=== PATIENT | female | born 1960 | race Caucasian/White ===

== ENCOUNTER 2016-02-15 13:24 | Outpatient (CLI) | payer MEDICARE, OTHER ==
[2013-01-12 13:48] VITALS: BP 137/82
[2016-02-15 14:06] LABS: eGFR (African) > 60; eGFR (Non-African) > 60
== END 2016-02-15 13:25 ==
LOC: LAB 13:24
PROVIDERS: ATTEND Family Medicine
DX: E78.2 Mixed hyperlipidemia (principal)
CPT/HCPCS: 36415; 80053; 80061

== ENCOUNTER 2016-03-28 14:39 | Outpatient (CLI) | payer MEDICARE, OTHER ==
[2013-01-12 13:48] VITALS: BP 137/82
[2016-03-28 15:06] LABS: BASOPHILS % 0.3 (0.0-1.5); EOSINOPHILS % 2.4 % (0.0-6.8); LYMPHOCYTES # 1.6 # k/uL (0.6-4.0); MEAN CORPUSCULAR HEMOGLOBIN 32.5 pg (28.0-34.0); MONOCYTES # 0.2 # k/uL (0.0-0.9); NEUTROPHILS # 3.2 # k/uL (1.4-7.7)
[2016-03-28 15:35] LABS: eGFR (African) > 60; eGFR (Non-African) > 60
== END 2016-03-28 14:40 ==
LOC: LAB 14:39
PROVIDERS: ATTEND Physician Assistant
DX: I49.8 Other specified cardiac arrhythmias (principal)
CPT/HCPCS: 36415; 80053; 84443; 85025

== ENCOUNTER 2016-11-20 07:42 | Day surgery (SDC) | payer MEDICARE, OTHER ==
[2013-01-12 13:48] VITALS: BP 137/82
[2016-11-20] MEDS ORDERED: LIDOCAINE HCL/PF 2% 100 MG/5 ML VIAL IJ ONE (08:00)
[2016-11-20] MEDS ORDERED: SALINE FLUSH 10 ML DISP.SYRIN IVF ONE (08:00)
[2016-11-20] MEDS ORDERED: LACTATED RINGERS 1,000 ML IV.SOLN IV ONE (08:00)
[2016-11-20] MEDS ORDERED: PROPOFOL 500 MG/50 ML VIAL IV ONE (08:00)
--- NOTE | 2016-11-20 11:21 | GI Report ---
REFERRING PHYSICIAN: DEBORAH Jain SUBSTANCE ABUSE RN: Mando Colindres MD PROCEDURE MEDICATION: Propofol as per anesthesia. INDICATIONS: A 56-year-old woman with multiple medical issues. She has COPD from chronic smoking. She has had previous polyps. A number of family members have had colon cancer and other cancers in the family. The patient has central obesity. She apparently has had pancreatitis in the past. She states she no longer smokes and has cut back on alcohol. She is 5 feet 2 inches and weighs 95 kilograms and carries that centrally. On examination, she has decreased breath sounds. Abdomen is protuberant. No specific areas of tenderness. Heart is regular. PROCEDURE PERFORMED: Colonoscopy and polypectomy. PROCEDURE: An Olympus video colonoscope was advanced to the rectum. She has very extensive diverticular disease of the sigmoid and descending colon with large mouth diverticula. Near the splenic flexure, she had 2 flat polyps removed with a cold snare varying about 3 to 4 mm in size. The appendiceal orifice and ileocecal valve looked normal. Again, the ascending colon is normal until you get to near the hepatic flexure on the transverse colon side with the 2 polyps removed as described. Again, descending colon and sigmoid with extensive large diverticula. Retroflexion of the rectum was unremarkable. Patient tolerated the procedure well. FINDINGS: 1. Two polyps removed near the hepatic flexure. 2. Severe diverticular disease of the sigmoid colon and descending colon. RECOMMENDATIONS: 1. Pending the pathology reports, consider re-looking at her colon in 5 years. 2. Again, would stay off tobacco. 3. Dietary changes. Try to get increased fiber in her diet or add Metamucil or Citrucel or FiberCon or fiber supplement daily. 4. Follow up with Katelyn Su. cc: DEBORAH Jain
== END 2016-11-20 07:43 ==
LOC: OPSURG 07:42
PROVIDERS: ATTEND Internal Medicine Gastroenterology
DX: K63.5 Polyp of colon (principal); K57.30 Diverticulosis of large intestine without perforation or abscess without bleeding; Z87.891 Personal history of nicotine dependence; Z80.9 Family history of malignant neoplasm, unspecified
CPT/HCPCS: 88305; J2001; J2704; J7120; 45385; S1016

== ENCOUNTER 2017-02-27 09:44 | Emergency (ER) | payer MEDICARE, OTHER ==
--- NOTE | 2017-02-27 10:11 | ED Physician Documentation ---
Dyspnea - HISTORIAN Historian: patient - HPI Chief Complaint: Dyspnea Additional Information: Patient has a history COPD. Has a 10 day history of increasing SOD, dyspnea. Has developed a cough that has been productive of yellow phlegm. No blood noted. Has some clear nasal drainage. . No chest pain noted. Throat is raw. Granddaughter positive for influenza A and was around patient all weekend. Onset: days ago (10 days) Duration: continues in ED, worse (over the last 24 hours. ) Initiating Event: upper respiratory illness Severity: moderate Associated Symptoms: chills, fever (not sure how high) Further Comments: no - ROS CONST: no problems EYES/ENT: sore throat (raw), nasal drainage (mild clear) GI/: nausea. denies: diarrhea NEURO/PSYCH: headache (mild) MS/SKIN/LYMPH: other (body aches) - PAST HX Lung Disease: COPD Cardiac Disease: none PE Risk Factors: none Surgeries/Procedures: cholecystectomy, other (abd wall hernia repair, left TKR) Other History: other (chronic pancreatitis) Immunizations: influenza, pneumovax (Pneumovax 23, Prevnar 13.) Allergies/Adverse Reactions: Allergies Allergy/AdvReac Type Severity Reaction Status Date / Time codeine Allergy Verified 02/27/17 10:14 Home Medications: Ambulatory Orders Medication Instructions Recorded Multivitamin [Bugs Bunny Vit Plus 1 each PO D 02/17/12 Minerals] Nystatin 500,000 Unit/5 ml Udc 500,000 unit PO QID #200 ml 02/27/17 [Nilstat] Oseltamivir Phosphate [Tamiflu] 75 mg PO BID #10 capsule 02/27/17 - SOCIAL HX Smoking History: quit greater than 1 year (Dec 2015) Alcohol Use: occasionally Drug Use: none - FAMILY HX Family History: none - VITAL SIGNS Vital Signs: Vital Signs Temp Pulse Resp BP Pulse Ox 137/82 01/12/13 13:47 - REVIEWED ASSESSMENTS Nursing Assessment Reviewed: Yes Vitals Reviewed: Yes Progress - Progress Progress: Post HFN treatment patient states that her breathing is much better and close to baseline. ED Results Lab/Radiology - Radiology Radiology Impressions: Examination: PA and lateral chest. History: Evaluate lung beckford. Comparison exam: None provided Findings: PA lateral chest demonstrate a normal cardiac and mediastinal silhouette. Apical emphysematous changes. Bihilar hazy infiltrates. No blunting of the costophrenic margins. Osseous structures are appropriate for age. Impression: Apical emphysematous changes. Bihilar infiltrates. No gross effusion. - Orders Orders: ED Orders Category Date Time Status Ipratropium/Albuterol Sulfate [Duoneb] Med 02/27/17 09:53 Discontinued 3 ml NEB .STK-MED ONE Dyspnea Physical Exam - EXAM General Appearance: alert, mild distress EENT: ENT inspection normal, pharynx normal (some white patches to hard palate) , no signs of dehydration Neck: nml inspection. No: lymphadenopathy Respiratory: speaks full sentences, respiratory distress (mild), wheezes (mild bilateral). No: rhonchi CVS: reg. rate & rhythm, no murmur, no gallop, no friction rub Abdomen: non-tender, no organomegaly, no distention Skin: color nml, no rash Extremities: non-tender, normal range of motion Neuro/Psych: oriented x3, CN's nml as tested, mood/affect nml Discharge Clincal Impression: Influenza, Oral candidiasis Prescriptions: Nystatin 500,000 Unit/5 ml Udc [Nilstat] 500,000 unit PO QID #200 ml Oseltamivir Phosphate [Tamiflu] 75 mg PO BID #10 capsule Referrals: Adelaide Breen MD [Primary Care Provider] - 2 Days Additional Instructions: Drink a lot of fluids. Get a lot of rest. Take Tamiflu 75mg twice a day. If your breathing gets worse you should see your primary care provider or return to the ED. Condition: Stable Disposition: HOME, SELF-CARE Decision to Admit: NO Date of Decison to Admit: 02/27/17 Decision Time: 11:20
[2017-02-27 10:14] VITALS: BP 148/61
[2017-02-27] MEDS: IPRATROPIUM/ALBUTEROL SULFATE 3 ML AMPUL.NEB NEB ONE ×2 (10:23→10:28)
[2017-02-27 10:29] LABS: BASOPHILS % 0.5 (0.0-1.5); EOSINOPHILS % 1.5 % (0.0-6.8); MEAN CORPUSCULAR HEMOGLOBIN 32.5 pg (28.0-34.0); MEAN CORPUSCULAR VOLUME 93.2 fl (80.0-100.0); MONOCYTES % 3.5 % (0.0-11.0); NEUTROPHILS # 4.7 # k/uL (1.4-7.7)
[2017-02-27 10:39] LABS: eGFR (African) > 60; eGFR (Non-African) > 60
[2017-02-27] MEDS: methylPREDNISolone SOD SUCC 125 MG/2 ML VIAL IVP ONE (10:55)
--- NOTE | 2017-02-27 13:46 | Diagnostic Imaging Report ---
JAEL HERNÁNDEZ [facility] [id number] [facility] [address] [address] Report Submission Date: Feb 27, 2017 10:57:55 AM MATERIAL CONTROL CLERK Patient Study Name: DAVI URENA Date: Feb 27, 2017 10:30:49 AM MATERIAL CONTROL CLERK Modality Type: CR Gender: F Description: CHEST : 56 Institution: [facility] Physician: JAEL HERNÁNDEZ Examination: PA and lateral chest. History: Evaluate lung beckford. Comparison exam: None provided Findings: PA lateral chest demonstrate a normal cardiac and mediastinal silhouette. Apical emphysematous changes. Bihilar hazy infiltrates. No blunting of the costophrenic margins. Osseous structures are appropriate for age. Impression: Apical emphysematous changes. Bihilar infiltrates. No gross effusion. Electronically signed on Feb 27, 2017 10:57:55 AM MATERIAL CONTROL CLERK by: Temo BRAUN
== END 2017-02-27 11:27 | disposition home or self-care (01) ==
LOC: ED 09:44
DX: J11.1 Influenza due to unidentified influenza virus with other respiratory manifestations (principal); B37.0 Candidal stomatitis; J44.9 Chronic obstructive pulmonary disease, unspecified
CPT/HCPCS: 71020; 80053; 85025; 94640; 96374; 99283; J2930; S1016

== ENCOUNTER 2017-05-04 13:52 | Outpatient (CLI) | payer MEDICARE, OTHER | END 2017-05-04 13:53 | LOC: LAB 13:52 | PROVIDERS: ATTEND Family Medicine | DX: E78.2 Mixed hyperlipidemia (principal) | CPT/HCPCS: 36415; 80061 ==

== ENCOUNTER 2018-02-04 11:16 | Outpatient (CLI) | payer MEDICARE, OTHER ==
[2018-02-04 11:46] LABS: BASOPHILS % 0.4 (0.0-1.5); EOSINOPHILS % 1.4 % (0.0-6.8); MEAN CORPUSCULAR HEMOGLOBIN 31.3 pg (28.0-34.0); MONOCYTES % 4.6 % (0.0-11.0); NEUTROPHILS # 4.2 # k/uL (1.4-7.7)
[2018-02-04 12:25] LABS: eGFR (Non-African) > 60
--- NOTE | 2018-02-04 20:03 | Diagnostic Imaging Report ---
NATA ALCARAZ [facility] [address] [facility] [address] [place], [place]. [address] Report Submission Date: Feb 04, 2018 5:18:37 PM CERTIFIED INDUSTRIAL HYGIENIST Patient Study Name: DAVI URENA Date: Feb 04, 2018 11:29:24 AM CERTIFIED INDUSTRIAL HYGIENIST Modality Type: DX Gender: F Description: CHEST : 56 Institution: [facility] Physician: NATA ALCARAZ PA and lateral chest History: Chest pain PA and lateral chest dated February 04, 2018 is without prior radiographs for comparison. Heart size is normal. The lungs are hyperinflated consistent with COPD. Streaky areas of abnormal and predominantly linear density are present extending from the hilar region bilaterally, probably areas of scarring but nonspecific by plain radiographs. Consider chest CT for further assessment of these abnormalities. There is no pleural effusion. Impression: Findings consistent with COPD. Abnormal and predominantly streaky linear densities extend from the perihilar regions bilaterally, probably areas of scarring and/or fibrosis. There are no comparison radiographs. Consider chest CT for further assessment. Electronically signed on Feb 04, 2018 5:18:37 PM CERTIFIED INDUSTRIAL HYGIENIST by: Zabrina BRAUN
== END 2018-02-04 11:18 ==
LOC: LAB 11:16
PROVIDERS: ATTEND Nurse Practitioner Family
DX: R07.9 Chest pain, unspecified (principal); R93.89 Abnormal findings on diagnostic imaging of other specified body structures
CPT/HCPCS: 36415; 71046; 80053; 82550; 83880; 84484; 85025

== ENCOUNTER 2018-04-16 12:06 | Outpatient (CLI) | payer MEDICARE, OTHER ==
[2018-04-16 12:47] LABS: eGFR (Non-African) > 60
== END 2018-04-16 12:08 ==
LOC: LAB 12:06
PROVIDERS: ATTEND Internal Medicine
DX: E78.5 Hyperlipidemia, unspecified (principal); R07.9 Chest pain, unspecified
CPT/HCPCS: 36415; 80053; 80061

== ENCOUNTER 2018-10-30 15:24 | Outpatient (CLI) | payer MEDICARE, OTHER | END 2018-10-30 15:26 | LOC: LABRHC 15:24 | PROVIDERS: ATTEND Family Medicine | DX: Z12.4 Encounter for screening for malignant neoplasm of cervix (principal) | CPT/HCPCS: 88148; G0143 ==

== ENCOUNTER 2018-11-25 07:22 | Day surgery (SDC) | payer MEDICARE, OTHER ==
[2018-11-25] MEDS ORDERED: LACTATED RINGERS 1,000 ML IV.SOLN IV ONE (08:48)
[2018-11-25] MEDS ORDERED: PROPOFOL 200 MG/20 ML VIAL IV ONE (08:48)
[2018-11-25] MEDS ORDERED: LIDOCAINE HCL 2% PF 100MG/5ML VIAL IJ ONE (08:48)
--- NOTE | 2018-11-29 12:41 | GI Report ---
DATE OF PROCEDURE: 11/25/2018 REFERRING PHYSICIAN: Dr. Breen. PROCEDURE PERFORMED: Colonoscopy. SURGEON: Gold Chamberlain M.D., Princess. INDICATION FOR PROCEDURE: A 58-year-old woman with a strong family history of colon cancer in grandfather and uncle. The patient has had polyps in the past. She has had recent change of bowel habits with pain in the left upper quadrant. She has COPD. She is referred for the above indications. PROCEDURE MEDICATION: Propofol, as per Anesthesia. DESCRIPTION OF PROCEDURE: The Olympus video colonoscope was advanced through the rectum. In the sigmoid she has extensive diverticular disease. She has a few scattered diverticula throughout the descending and even transverse colon. The colonoscope was slowly advanced all the way to the cecum. The appendiceal orifice was identified. The ileocecal valve was normal. On slow withdrawal, the cecum, ascending colon and transverse colon, no obvious intraluminal lesions noted though she does have scattered diverticula. Descending colon, and particularly sigmoid, severe diverticular disease of the colon but on slow withdrawal no obvious intraluminal lesions were noted. Retroflexion in the rectum was normal. The patient tolerated the procedure well. FINDINGS: Extensive diverticular disease of the sigmoid colon and scattered diverticula in the descending, transverse colon. I see no polyps at this time. RECOMMENDATIONS: 1. Increase fiber in the diet such as adding a fiber supplement like Benefiber or Metamucil daily. 2. Consider relook at her colon again in 5 years, sooner if clinically indicated. GOLD CHAMBERLAIN M.D., DarielaCLucianoP. CHEVY/kierra Job#: [id number] Cc: Dr. Breen. [facility]ITAL[facility]
== END 2018-11-25 09:18 | disposition home or self-care (01) ==
LOC: OPSURG 07:22
PROVIDERS: ATTEND Internal Medicine Gastroenterology
DX: R19.4 Change in bowel habit (principal); Z86.010 Personal history of colon polyps; Z80.0 Family history of malignant neoplasm of digestive organs; K57.30 Diverticulosis of large intestine without perforation or abscess without bleeding
CPT/HCPCS: 45378; J2001; J2704; J7120